=== PATIENT | male | born 1970 | race Caucasian/White ===

== ENCOUNTER 2024-04-22 16:08 | Emergency (ER) | payer MEDICARE, OTHER, SELFPAY ==
--- NOTE | ~2024-04-22 | XR_ITS ---
EXAMINATION: XR FOOT, LEFT CLINICAL INFORMATION: Wound status post amputation COMPARISON: None available. TECHNIQUE: AP, lateral, and oblique views of the left foot. FINDINGS: There has been an amputation through the proximal phalanx of the great toe with the majority of the phalanx remaining. No air is seen in the subcutaneous tissues. Degenerative changes are present at the first MTP joint with a periarticular erosion medially. Degenerative changes are seen in the mid foot. No bony destructive lesions or fractures are seen. Mild calcaneal spurs are present. XR/XR foot LT min 3V IMPRESSION: Status post amputation of the great toe. No evidence of osteomyelitis. If this is a concern, would recommend MRI. Electronically signed by: Mick Silver MD 04/22/2024 06:42 PM EDT
[2024-04-22 16:15] VITALS: BP 163/95; PULSE 121; RESP 19; TEMP 36.6; O2SAT 98; BMI 29.6
--- NOTE | 2024-04-22 16:15 | ED_ITS ---
HPI - Extremity Problem General Chief complaint: Wound/Laceration Stated complaint: left foots sutures are infected Time Seen by Provider: 04/23/24 00:45 Source: patient Mode of arrival: ambulatory Limitations: no limitations History of Present Illness ED Provider: Dr. Michelle Castaneda HPI Narrative: Patient comes to the emergency room requesting that his stitches get removed. Patient had a great toe amputation 20 days ago. It was done in [place]. Patient states that he lives in [place] but is visiting the area, came to check on his mother and sister. Patient denies any significant pain. Related Data Previous Rx's ?Medication ?Instructions ?Recorded cephalexin 500 mg capsule 500 mg PO BID #14 caps 04/23/24 clotrimazole 1 % topical cream 1 appl topical BID 2 weeks #45 04/23/24 (Lotrimin AF (clotrimazole)) grams Allergies Allergy/AdvReac Type Severity Reaction Status Date / Time No Known Allergies Allergy Verified 04/22/24 16:18 Review of Systems 2 Review of Systems: Constitutional : No Weight loss, No Fever, No Chills, No Night Sweats, No Fatigue, No Malaise ENT/Mouth : No Hearing loss, No Ear Pain, No Nasal Congestion, No Sinus Pain, No Hoarseness, No sore throat, No Rhinorrhea, No Swallowing Difficulty Eyes: No Eye Pain, No Swelling, No Redness, No Foreign Body, No Discharge, No Vision Changes Cardiovascular : No Chest Pain, No SOB, No Dyspnea on Exertion, No Orthopnea, No Edema, No Palpitations Respiratory : No Cough, No Sputum, No Wheezing, No Smoke Exposure, No Dyspnea Gastrointestinal : No Nausea, No Vomiting, No Diarrhea, No Constipation, No abdominal Pain, No Hematochezia, No Melena Genitourinary : no irregular bleeding, No Dysuria, No Urinary Frequency, No Hematuria, No Urinary Incontinence, No Urgency, No Flank Pain, No Urinary Flow Changes, No Hesitancy Musculoskeletal : No joint pain, No Myalgias, No Joint Swelling Skin : Toe amputation 20 days ago, stitches present Neuro : No Weakness, No Numbness, No Paresthesias, No Loss of Consciousness, No Dizziness, No Headache Psych : No Anxiety/Panic, No Depression, No SI/HI/AH/VH, No Social Issues, Heme/Lymph: No Bruising, No Bleeding,No Lymphadenopathy Endocrine : No Polyuria, No Polydipsia, No Temperature Intolerance [facility] Past Medical History Medical History (Updated 04/23/24 @ 01:43 by Michelle Castaneda MD) Type 2 diabetes mellitus Surgical History (Updated 04/23/24 @ 01:37 by Michelle Castaneda MD) Hx of right BKA Social History Social History Advance Directives: No Advance Directives Information Provided: No Do you have a plan to hurt others: No Plan Physical Exam 2 Vital Signs: Vital Signs: Last Vital Signs Temp 98.7 F 04/23/24 00:34 Pulse 98 04/23/24 00:34 Resp 16 04/23/24 00:34 BP 139/85 04/23/24 00:34 Pulse Ox 100 04/23/24 00:34 O2 Del Method Room Air 04/23/24 00:34 BMI result Body Mass Index 29.6 Const: Other: Appearance: Alert. Oriented X3. No acute distress. Eyes: Pupils equal, round and reactive to light. ENT: Pharynx normal. Neck: Normal inspection. Neck supple. No lymph nodes noted. No crepitus CVS: Normal heart rate and rhythm. Pulses normal. Normal S1 and S2 Respiratory: No respiratory distress. Breath sounds normal. No Wheezing. No rales Abdomen: Soft and nontender. No rigidity. No distention. Skin: Patient has stitches. Patient has athlete's foot between all toes and plantar aspect of foot Extremities: No lower extremity edema. No Lacerations. No Rash Neuro: Oriented X 3. No motor deficit. No sensory deficit. Moving all extremities. No slurred speech. CN 2 through 12 grossly intact Psych: calm, cooperative, normal affect Course Course Course Narrative: This is a Rapid Medical Examination (RME) performed by Phyllis Ramsey PA-C in triage. Full HPI, ROS, assessment and treatment plan per primary provider in the Main ED. 53 yo male with history of DM with history of BKA on the right presents to the ER for evaluation of left foot infection after a great toe amputation 14 days ago at [facility]. has been on doxycycline and amoxicillin for the last 2 weeks. sent in from urgent care for concerns of infection in the area. small amount of drainage per the patient. no fevers. has not had any surgical follow up with surgeon at [facility]. Plan: labs, XR. Medical Decision Making Medical Decision Making MDM Narrative: X-rays: No obvious signs of osteomyelitis per x-ray -the foot itself looks like it is healing well. There is no drainage. However, between the proximal part of the greater toe and the 2nd toe, there is an ulcer -patient is on doxycycline. Patient states that sometimes it makes him feel itchy. Patient's antibiotics were switched to Keflex. -patient was given information to go to walk-in clinics while he is here in [place] before he returns to his home in [place]. Also, given the phone number of surgery for follow-up -my interpretation of labs, white blood cell count normal. Differential Diagnosis Differential Diagnoses: The differential diagnosis associated with the presentation includes (Cellulitis, diabetic foot) Lab Data [facility] Lab Attestation statement: I reviewed the patient's lab results. 04/22/24 18:14 04/22/24 18:14 Labs: Lab Results 04/22/24 Range/Units 18:14 WBC 6.4 (4.8-10.8) X10*3/uL RBC 4.24 L (4.60-5.80) X10*6/uL Hgb 12.2 L (14.0-18.0) g/dl Hct 37.7 L (42.0-52.0) % MCV 88.9 (80.0-98.0) fL MCH 28.8 (27.0-33.0) pg MCHC 32.4 (31.0-36.0) g/dl RDW 13.6 (11.0-16.0) % Plt Count 307 (160-400) X10*3/uL MPV 10.6 (9.4-12.4) fL Immature Gran % (Auto) 0.2 (0.0-0.4) % Neut % (Auto) 51.8 (45-73) % Lymph % (Auto) 32.2 (20-40) % [place] % (Auto) 7.5 (2-11) % Eos % (Auto) 7.7 H (0-4) % Baso % (Auto) 0.6 (0-2) % Lymph # (Auto) 2.1 (1.2-4.9) X10*3/uL [place] # (Auto) 0.5 (0.1-1.2) X10*3/uL Eos # (Auto) 0.5 H (0.0-0.4) X10*3/uL Baso # (Auto) 0.0 (0.0-0.2) X10*3/uL Abs Immat Gran (auto) 0.01 (0.00-0.03) X10*3/uL Absolute Neuts (auto) 3.3 (2.0-8.3) x10*3/uL Absolute Nucleated RBC 0.000 (0.0-0.012) X10*3/uL Nucleated RBC % (auto) 0.0 (0.0-0.2) /100WBC ESR 78 H (0-15) MM/HR Sodium 141 (135-145) mmol/L Potassium 4.1 (3.3-5.1) mmol/L Chloride 104 (96-108) mmol/L Carbon Dioxide 29 (22-29) mmol/L Anion Gap 12 (12-20) BUN 15 (9-16) mg/dL Creatinine 1.18 (0.5-1.4) mg/dL Estim Creat Clear Calc 100.0 Estimated GFR > 60 Random Glucose 158 H (60-115) mg/dL Calcium 8.7 (8.4-10.2) mg/dL Magnesium 1.9 (1.6-2.6) mg/dL Total Bilirubin 0.3 (0.0-1.0) mg/dL Direct Bilirubin 0.1 (0.0-0.5) mg/dL AST 15 (5-37) U/L ALT 19 (0-40) U/L Alkaline Phosphatase 117 (39-117) U/L C-Reactive Protein 2.07 H (< or = 0.50) mg/dL Total Protein 8.3 H (6.5-8.0) g/dL Albumin 3.8 (3.5-5.0) g/dL Discharge Plan Discharge Clinical Impression: Encounter for removal of sutures, Athlete's foot, Pressure ulcer of toe Patient Disposition: Home, Self-Care Instructions: Skin Yeast Infection (ED), Stitches Removal (ED) Additional Instructions: Please follow-up with your primary care physician tomorrow. If you have any worsening or new symptoms, please return to the emergency room or call 911 Prescriptions: New cephalexin 500 mg capsule 500 mg PO BID Qty: 14 0RF clotrimazole [Lotrimin AF (clotrimazole)] 1 % cream 1 appl topical BID 14 Days Qty: 45 0RF Referrals: Arnel Hilliard MD [Physician] - 04/24/24 (Toe Amputation follow-up, does not have a surgeon) Print Language: Hebrew
[2024-04-22 18:19] LABS: MANUAL DIFF FLAG NO
[2024-04-22 18:32] LABS: Basophils Percent Auto 0.6 % (0-2); Eosinophils Absolute Auto 0.5 X10*3/uL (0.0-0.4); Eosinophils Percent Auto 7.7 % (0-4); Hematocrit 37.7 % (42.0-52.0); Hemoglobin 12.2 g/dl (14.0-18.0); Imm Gran Abs Auto 0.01 X10*3/uL (0.00-0.03); Imm Gran Pct Auto 0.2 % (0.0-0.4); Lymphocytes Absolute Auto 2.1 X10*3/uL (1.2-4.9); Lymphocytes Percent Auto 32.2 % (20-40); Mean Corpuscular HGB Conc 32.4 g/dl (31.0-36.0); Mean Corpuscular Hemoglobin 28.8 pg (27.0-33.0); Mean Corpuscular Volume 88.9 fL (80.0-98.0); Mean Platelet Volume 10.6 fL (9.4-12.4); Monocytes Absolute Auto 0.5 X10*3/uL (0.1-1.2); Monocytes Percent Auto 7.5 % (2-11); Neutrophils Absolute Auto 3.3 x10*3/uL (2.0-8.3); Neutrophils Percent Auto 51.8 % (45-73); Platelet Count 307 X10*3/uL (160-400); Red Blood Count 4.24 X10*6/uL (4.60-5.80); Red Cell Distribution Width 13.6 % (11.0-16.0); White Blood Count 6.4 X10*3/uL (4.8-10.8)
[2024-04-22 18:40] LABS: Alanine Aminotransferase 19 U/L (0-40); Albumin Level 3.8 g/dL (3.5-5.0); Alkaline Phosphatase 117 U/L (39-117); Anion Gap 12 (12-20); Aspartate Amino Transferase 15 U/L (5-37); Bilirubin Direct 0.1 mg/dL (0.0-0.5); Bilirubin Total 0.3 mg/dL (0.0-1.0); Blood Urea Nitrogen 15 mg/dL (9-16); C Reactive Protein 2.07 mg/dL (< or = 0.50); Calcium 8.7 mg/dL (8.4-10.2); Carbon Dioxide 29 mmol/L (22-29); Chloride 104 mmol/L (96-108); Estimated Glomerular Filt Rate > 60; Glucose Random 158 mg/dL (60-115); Magnesium 1.9 mg/dL (1.6-2.6); Potassium 4.1 mmol/L (3.3-5.1); Sodium 141 mmol/L (135-145); Total Protein 8.3 g/dL (6.5-8.0)
[2024-04-22 20:18] LABS: Erythrocyte Sedimentation Rate 78 MM/HR (0-15)
[2024-04-23 00:34] VITALS: BP 139/85; PULSE 98; RESP 16; TEMP 37.1; O2SAT 100
[2024-04-23 01:57] VITALS: BP 135/89; PULSE 83; RESP 20; TEMP 36.6; O2SAT 97
[2024-04-23] MEDS: cephALEXin 500 MG CAPSULE PO (01:57)
[2024-04-23 02:00] VITALS: BP 135/89; PULSE 83; RESP 20; TEMP 36.6; O2SAT 97
== END 2024-04-23 02:07 | disposition home or self-care (01) ==
PROVIDERS: Physician Assistant; Emergency Provider Emergency Medicine
DX: B35.3 Tinea pedis (principal); L89.899 Pressure ulcer of other site, unspecified stage; Z48.02 Encounter for removal of sutures; Z89.412 Acquired absence of left great toe; E11.9 Type 2 diabetes mellitus without complications
CPT/HCPCS: 36415; 73630; 80048; 80076; 83735; 85025; 85652; 86140; 99282; 99283